=== PATIENT | female | born 1950 | race Caucasian/White ===

== ENCOUNTER → 2017-07-27 | Outpatient (CLI) | payer OTHER ==
--- NOTE | 2017-07-27 14:55 | MAMMOGRAPHY REPORT ---
BILATERAL DIGITAL SCREENING MAMMOGRAM WITH CAD: 07/27/2017 CLINICAL HISTORY: Routine screening. Patient has no complaints. TECHNIQUE: Bilateral CC, MLO and repeat left MLO views were obtained. Current study was also evaluat ed with a Computer Aided Detection (CAD) system. COMPARISON: Comparison is made to exams dated: 07/24/2016 mammogram, 07/23/2015 mammogram, 4 mammogram, 07/15/2012 mammogram, 07/18/2013 mammogram, and 07/10/2011 mammogram - [facility] [place]. BREAST COMPOSITION: The tissue of both breasts is heterogeneously dense, which may obscure small mas ses. FINDINGS: There are possible grouped microcalcifications in the 12:00 versus 6:00 right breast, rafael anting additional spot magnification views. No other suspicious mass, architectural distortion or cluster of microcalcifications is seen bilatera lly. IMPRESSION: ACR BI-RADS CATEGORY 0: INCOMPLETE EVALUATION: NEED ADDITIONAL IMAGING EVALUATION The possible groupings of microcalcifications in the 12:00 versus 6:00 right breast need additional i maging evaluation. The patient will be called to schedule an appointment. Approximately 10% of breast cancers are not detected with mammography. A negative mammographic report should not delay biopsy if a clinically suggestive mass is present. Destini Khan M.D. ay/:07/27/2017 12:57:32 Hand Silvering Supervisor: Elvira FAUSTIN(Patti)(M), [facility] letter sent: [facility] 0 BI-RADS Code: ACR BI-RADS Category 0: Incomplete Evaluation: Need Additional Imaging Evaluation
== END | disposition home or self-care (01) ==
LOC: C.MAMM 09:26
PROVIDERS: ATTEND Family Medicine
DX: Z12.31 Encounter for screening mammogram for malignant neoplasm of breast (principal); R92.0 Mammographic microcalcification found on diagnostic imaging of breast

== ENCOUNTER → 2017-08-18 | Outpatient (CLI) | payer OTHER ==
--- NOTE | 2017-08-18 13:37 | Discharge Instructions ---
Discharge Instructions Procedure Procedure Date: Aug 18, 2017. Reason for visit: Right Calcs. Discharge Discharge Date: Aug 18, 2017. Discharge Diagnosis: post right breast stereotactic guided biopsy Medications Restart Stopped Medication(s): May restart Aspirin tomorrow as long as not bleeding through bandages Instructions Activity Recommendations: Additional Limitations (see below) Return to School/Work: no limitations Recommended Home Diet: No Limitations Provider Instructions: ACTIVITY RECOMMENDATIONS: * No lifting, pushing, pulling or exercising the affected side for three days. RETURN TO SCHOOL/WORK: * You may return to work/school after the procedure, but do not perform any strenuous activities for 24 to 48 hours. MEDICATIONS: * Tylenol (two 325 mg) every four to six hours if needed for mild pain (if not allergic to Tylenol). DIET: * Resume previous diet. SPECIAL CARE INSTRUCTIONS: * Keep biopsy site dry for 24 hours. May shower after 24 hours, but do not soak (bathe) incision. * May remove Tegaderm (plastic patch) tomorrow AFTER showering. * Leave the steri-strips on for one week. Allow the steri-strips to fall off by themselves. If not off after one week, you may remove them. You may place a Bandaid crosswise over the strips, if desired. * Apply ice 10 minutes on and 10 minutes off as needed. * Wear a bra at bedtime to sleep more comfortably for 2-3 days. * Your referring physician should have the results after approximately 5 to 7 business days. * Call for unusual bleeding, fever, drainage, etc or if you have any questions call [phone] during normal business hours or after hours call Dr Khan, . FOLLOW UP VISIT: Follow-up with Referring Physician as scheduled. Kristi Camacho Recommendations: Call your doctor if: * Temperature above 101 degrees * Pain not relieved by pain medicine ordered * There is increased drainage or redness from any incision * You have any unanswered questions or concerns. Your Doctors Instructions noted above were prepared by provider Destini Khan. Patient Signature Section: Patient Instructions Signature Page Jennifer Monsonraven Patient (or Guardian) Signature/Date: I have read and understand the instructions given to me by my caregivers. Caregiver/RN/Doctor Signature/Date: The above-named patient and/or guardian has received patient instructions on this date. + Original Patient Signature Page (only) stays with chart. Please make copy for patient.
--- NOTE | 2017-08-25 09:34 | MAMMOGRAPHY REPORT ---
STEREOTACTIC GUIDED BIOPSY RIGHT BREAST: 08/18/2017 CLINICAL HISTORY: Indeterminate clusters of microcalcifications in the right breast superior and post erior aspect and also 6:00 middle one third of the breast. Patient presents for biopsy of the larges t cluster in the superior and posterior breast. COMPARISON: Comparison is made to exams dated: 08/05/2017 mammogram, 07/27/2017 mammogram, 07/24/2016 mammogram, 07/23/2015 mammogram, 07/20/2014 mammogram, and 07/18/2013 mammogram - [facility] [address]. PATIENT CONSENT: After explaining the risks, benefits and alternatives of the procedure to the patien t, informed consent was obtained both verbally and in writing. Specific risks include: Bleeding, inf ection, puncture of adjacent structure, pain, nontarget biopsy, sampling error, metal allergy and med ication reaction. PROCEDURE DESCRIPTION: A time-out was performed and the right breast was confirmed as the site of bio psy. The patient was placed prone on the stereotactic biopsy table and the breast was placed in later almedial compression. A costume rental clerk image was obtained that demonstrated the clustered microcalcifications in question. They are amenable to sterotactic biopsy. Then +15 and -15 stereo pair images were ob tained. The calcifications were targeted utilizing the coordinates obtained by the computer. The ski n was prepped with Betadine. 1% Lidocaine with and without epinipherine was administered as local ane sthesia. A small skin incision was made. Through the incision, the needle was inserted to the depth determined by the computer. 10 samples were obtained using a [employer] 9-gauge vacuum-assisted biop sy device. The specimen radiograph demonstrated several customer field representative microcalcifications, therefore , a metallic marker was placed at the biopsy site. There was no immediate complication. Hemostasis wa s achieved after several minutes of manual compression. The calcifications were interspersed within all of the specimen therefore the samples were sent to pathology in 1 appropriately labeled container . Postprocedure CC and ML views of the right breast were obtained. There is a new dumbbell-shaped met allic biopsy marker in the upper outer posterior right breast, at the site of the biopsied clustered microcalcifications. No significant postbiopsy hematoma. The biopsy marker clip appears displaced l aterally by approximately 2 cm based on the CC projection, likely due to accordion effect. IMPRESSION: STEREOTACTIC GUIDED BIOPSY Status post right breast stereotactic guided biopsy of clustered microcalcifications in the superior posterior right breast, with biopsy marker placed at the site. Pending benign pathology results, the smaller similar appearing cluster in the 6:00 right breast coul d be followed in 6 months to ensure stability. The patient will receive notification of the biopsy results from her referring physician. Destini Khan M.D. ay/:08/18/2017 13:58:23 [employer]: Cynthia CRAVEN)([place]), [facility]
--- NOTE | 2017-08-25 09:35 | MAMMOGRAPHY REPORT ---
UNILATERAL RIGHT DIGITAL DIAGNOSTIC MAMMOGRAM: 08/18/2017 CLINICAL HISTORY: 67-year-old woman presents for biopsy of a cluster of indeterminate microcalcificat ions in the far posterior and superior right breast. Please refer to the report from right breast stereotactic biopsy performed at the same time for full detail. IMPRESSION: POST PROCEDURE IMAGING FOR MARKER PLACEMENT Please refer to the report from right breast stereotactic biopsy performed at the same time for full detail. Approximately 10% of breast cancers are not detected with mammography. A negative mammographic report should not delay biopsy if a clinically suggestive mass is present. Destini Khan M.D. ay/:08/18/2017 13:35:55 Trim Line Worker: Cynthia CRAVEN)(M), [facility] BI-RADS Code: Post Procedure Imaging For Marker Placement
== END | disposition home or self-care (01) ==
LOC: C.MAMM 12:34
PROVIDERS: ATTEND Family Medicine
DX: R92.0 Mammographic microcalcification found on diagnostic imaging of breast (principal); N60.11 Diffuse cystic mastopathy of right breast